=== PATIENT | female | born 1965 | race Caucasian/White ===

== ENCOUNTER 2017-07-28 11:24 | Emergency (ER) | payer OTHER ==
[2017-07-28 11:27] VITALS: BP 164/92; PULSE 91; RESP 20; TEMP 99; O2SAT 99
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
[2017-07-28] MEDS ORDERED: IBUP-232 PO (12:46)
[2017-07-28] MEDS ORDERED: CYCL10TA PO (12:55)
== END 2017-07-28 13:03 | disposition home or self-care (01) ==
LOC: PHEFT 11:24
DX: M79.1 Myalgia (principal); V09.00XA Pedestrian injured in nontraffic accident involving unspecified motor vehicles, initial encounter; Y92.512 Supermarket, store or market as the place of occurrence of the external cause
CPT/HCPCS: 72131; 72220; 74000; 99285